=== PATIENT | female | born 1965 | race Caucasian/White ===

== ENCOUNTER 2023-06-21 02:44 | Emergency (ER) | payer SELFPAY ==
[2023-06-21] MEDS ORDERED: Ondansetron PF 4 MG/2 ML Vial ONE ×2 (03:21→04:29)
[2023-06-21 04:30] LABS: #Eosinphils 0.1 thou/uL (0.0-0.7); #Monocytes 0.3 thou/uL (0.11-0.59); #Neutrophils 3.9 thou/uL (1.40-6.50); %Basophils 0.5 % (0.0-1.0); %Lymphocytes 31.5 % (21.0-51.0); %Monocytes 4.5 % (0.0-10.0); %Neutrophils 62.2 % (42.0-75.0); Hematocrit 37.1 % (36.0-47.0); Hemoglobin 12.8 g/dL (12.0-16.0); Mean Corpuscular HGB CONC 34.5 g/dL (32.0-36.0); Mean Corpuscular Hemoglobin 31.5 pg (27.0-31.0); Mean Corpuscular Volume 91.4 fl (78.0-98.0); Mean Platelet Volume 9.3 fL (7.4-10.4); Platelet Count 348 10x3/uL (130-400); Red Blood Cell (RBC) Count 4.06 mill/uL (4.20-5.40); White Blood Cell (WBC) Count 6.2 10x3/uL (4.8-10.8)
[2023-06-21 04:49] LABS: Acetaminophen Less than 10 mcg/mL (10.0-30.0); Alcohol 223.7 mg/dL (Less than 10); Salicylate Less than 8.0 mg/dL (15.0-30.0)
[2023-06-21 04:50] LABS: ALT (SGPT) 23 U/L (8-55); AST (SGOT) 17 U/L (5-34); Albumin 3.9 g/dL (3.5-5.0); Alkaline Phosphatase 111 U/L (40-110); Anion Gap 16 mmol/L (10-20); BUN (Urea Nitrogen) 10 mg/dL (9.8-20.1); Bilirubin, Total 0.3 mg/dL (0.2-1.2); Calc. Creatinine Clearance 0 mL/min (70-130); Calcium 8.3 mg/dL (7.8-10.44); Carbon Dioxide 22 mmol/L (22-29); Chloride 109 mmol/L (98-107); Estimated GFR 101; Globulin 3.3 g/dL (2.4-3.5); Glucose 296 mg/dL (70-105); Potassium 3.8 mmol/L (3.5-5.1); Protein, Total 7.2 g/dL (6.0-8.3); Sodium 143 mmol/L (136-145)
== END 2023-06-21 06:35 | disposition home or self-care (01) ==
LOC: ERS 02:44
DX: F10.129 Alcohol abuse with intoxication, unspecified (principal); E11.9 Type 2 diabetes mellitus without complications
CPT/HCPCS: 36415; 80053; 80307; 85025; 96374; 96376; J2405

== ENCOUNTER 2024-04-10 15:02 | Emergency (ER) | payer SELFPAY ==
[2024-04-10] MEDS ORDERED: Dexamethasone 10 MG/ML VIAL ONE (15:24)
[2024-04-10] MEDS ORDERED: HYDROcodone/Acetaminophen 10/325 mg Tablet ONE (15:25)
== END 2024-04-10 15:38 | disposition home or self-care (01) ==
LOC: ERS 15:02
DX: T14.8XXA Other injury of unspecified body region, initial encounter (principal); E11.9 Type 2 diabetes mellitus without complications
CPT/HCPCS: 99282; J1100

== ENCOUNTER 2024-04-11 03:14 | Emergency (ER) | payer SELFPAY ==
[2024-04-11] MEDS ORDERED: diphenhydrAMINE 25 MG CAP ONE (04:10)
[2024-04-11] MEDS ORDERED: HYDROcodone/Acetaminophen 5/325 mg Tablet ONE (04:10)
== END 2024-04-11 04:15 | disposition home or self-care (01) ==
LOC: ERS 03:14
DX: L23.7 Allergic contact dermatitis due to plants, except food (principal); E11.9 Type 2 diabetes mellitus without complications
CPT/HCPCS: 99283